=== PATIENT | female | born 1985 | race Caucasian/White ===

== ENCOUNTER 2025-10-10 10:25 | Emergency (ER) | payer BC ==
[~2025-10-10] VITALS: Ht 185.4 cm; Wt 107.2 kg
[2025-10-10 11:51] VITALS: BP 121/88; PULSE 84; RESP 18; TEMP 98.3; O2SAT 98
--- NOTE | 2025-10-10 11:51 | ED.PDOC ---
History of Present Illness HPI Comments 40 y/o F, with PMHx of thyroid disease and seizures presents to the ED for CC of flu-like symptoms. Patient states she has been experiencing flu-like symptoms: including body-aches, nasal congestion, ear-pain, and lethargy onset, [id number]. Patient denies loss of taste or smell, nausea, vomiting, fever, or chills. No other symptoms or modifying factors are present at this time. Chief Complaint: Flu like Time Seen by MD: 11:40 Reviewed Notes: Nurses Notes, Medications, Allergies Allergies: Coded Allergies: Hydromorphone (Verified Allergy, Unknown, 05/04/16) Levetiracetam (Verified Allergy, Unknown, 05/04/16) Promethazine (Verified Allergy, Unknown, 05/04/16) Uncoded Allergies: POLYTHALINE (Allergy, Unknown, 05/04/16) Home Meds Active Scripts Promethazine HCl (Promethazine Hydrochlorid) 6.25 Mg/5 Ml Gisella, 12.5 MG PO TID for 10 Days, #300 ML Prov:ERMIAS HERRERA MD 10/10/25 Mometasone Furoate (Nasal) (Nasonex 24Hr) 50 Mcg/Act Spr, 50 MCG NA DAILY for 10 Days, #1 SPRAY Prov:ERMIAS HERRERA MD 10/10/25 Sulfamethoxazole W/Trimethopri (Bactrim Ds Tablet) 1 Tab Tb, 1 TAB PO BID for 10 Days, #20 TAB Prov:ERMIAS HERRERA MD 10/10/25 Information Source: Patient Mode of Arrival: Ambulatory Severity: Moderate Timing: Weeks Duration: Since onset Prehospital treatment: None Past Medical History PAST MEDICAL HISTORY: Anxiety, Seizures, Thyroid Surgical History: Denies all surgeries PLASMA PROCESSOR History: No Pertinent PLASMA PROCESSOR History Family History Family History: Unobtainable Social History Smoker: Non-Smoker Alcohol: Denies ETOH Use Drugs: Denies Drug Use Lives In: Home Constitutional: reports: weakness; denies: chills, diaphoresis, fatigue, fever, malaise, sweats, others EENTM: reports: ear pain, nose congestion; denies: blurred vision, double vision, ear bleeding, ear discharge, ear drainage, ear ringing, eye pain, eye redness, hearing loss, mouth pain, mouth swelling, nasal discharge, nose bleeding, nose pain, photophobia, tearing, throat pain, throat swelling, voice changes, others Respiratory: denies: cough, hemoptysis, orthopnea, SOB at rest, shortness of breath, SOB with excertion, stridor, wheezing, others Cardiovascular: denies: chest pain, dizzy spells, diaphoresis, Dyspnea on exertion, edema, irregular heart beat, left arm pain, lightheadedness, palpitations, PND, syncope, others Gastrointestinal: denies: abdomen distended, abdominal pain, blood streaked bowels, constipated, diarrhea, dysphagia, difficulty swallowing, hematemesis, melena, nausea, poor appetite, poor fluid intake, rectal bleeding, rectal pain, vomiting, others Genitourinary: denies: abnormal vagina bleeding, burning, dyspareunia, dysuria, flank pain, frequency, hematuria, incontinence, pain, , vagina discharge, urgency, others Neurological: denies: dizziness, fainting, headache, left sided numbness, left sided weakness, numbness, paresthesia, pre-existing deficit, right sided numbness, right sided weakness, seizure, speech problems, tingling, tremors, weakness, others Musculoskeletal: reports: others (body-aches); denies: back pain, gout, joint pain, joint swelling, muscle pain, muscle stiffness, neck pain Integumetry: denies: bruises, change in color, change in hair/nails, dryness, laceration, lesions, lumps, rash, wounds, others Allergic/Immunocompromised: denies: Difficulty Healing, Frequent Infections, Hives, Itching, others Hematologic/Lymphatic: denies: anemia, blood clots, easy bleeding, easy bruising, swollen glands, others Endocrine: denies: excessive hunger, excessive sweating, excessive thirst, excessive urination, flushing, intolerance to cold, intolerance to heat, unexplained weight gain, unexplained weight loss, others Psychiatric: denies: anxiety, bipolar disorder, depression, hopeless, panic disorder, schizophrenia, sleepless, suicidal, others All Other Systems: Reviewed and Negative Physical Exam General Appearance: Mild Distress, Moderate Distress, Obese HEENT: Normal ENT Inspection, PERRL/EOMI, Pharyngeal Erythema, Other (Description) Neck: Full Range of Motion, Non-Tender, Normal, Normal Inspection Respiratory: Chest Non-Tender, Lungs Clear, No Accessory Muscle Use, No Respiratory Distress, Normal Breath Sounds Cardiovascular: No Edema, No JVD, No Murmur, No Gallop, Normal Peripheral Pulse s, Regular Rate/Rhythm Breast Exam: Deferred Gastrointestinal: No Organomegaly, Non Tender, No Pulsatile Mass, Normal Bowel Sounds, Soft Genitalia: Deferred Pelvic: Deferred Rectal: Deferred Extremities: No calf tenderness, Normal capillary refill, Normal inspection, Normal range of motion, Non-tender, No pedal edema Neurologic: Alert, head resident II-XII nml as Tested, No Motor Deficits, Normal Affect, Normal Mood, No Sensory Deficits Cerebellar Function: Normal Reflexes: Normal Skin: Dry, Normal Color, Warm Peripheral Pulses: 1+ carotid (R), 1+ carotid (L) Lymphatic: No Adenopathy Was a procedure done? Was a procedure done?: No Differential Dx Considerations may include: COVID-19, influenza, viral syndrome, upper respiratory infection, otitis media sinusitis pneumonia X-Ray, Labs, Meds, VS Vital Signs Date Time Temp Pulse Resp B/P (MAP) Pulse Ox O2 Delivery O2 Flow Rate FiO2 10/10/25 11:51 84 18 98 Room Air 10/10/25 11:51 98.3 84 18 121/88 (99) 98 98.3 10/10/25 10:27 97.6 88 88 141/83 99 97.6 Lab Test 10/10/25 14:58 Range/Units SARS-CoV-2 Antigen (Rapid) Negative NEGATIVE X-Ray, Labs, Meds, VS Comment COURSE IN THE THE FAST TRACK EVEN FULL PATIENT CAME BECAUSE OF THE FLU-LIKE SYNDROME WITH A DIZZINESS FOR THE PAST TWO WEEKS NOT FEELING BETTER CHEST X-RAY IS NEGATIVE COVID with a negative PATIENT WILL BE DISCHARGED HOME TO FOLLOW UP WITH HER PCP Time of 1ST Reevaluation: 12:10 Reevaluation 1ST: Unchanged Time of 2ND Reevaluation: 15:30 Reevaluation 2ND: Improved Consultation: PCP Patient Education/Counseling: Diagnosis, Treatment, Prognosis, Need For Follow Up Family Education/Counseling: Diagnosis, Treatment, Prognosis, Need For Follow Up, No Family Present SEPSIS Sepsis Screen Date sepsis recognized/suspect: Oct 10, 2025 Time Sepsis recognized/suspect: 1029 Recent Procedure: No On Antibiotic Therapy: No Respiratory Rate >20: No Heart Rate >90: No Temp<36 C (96.8 F) or >38.3 C: No SBP <90 or MAP <65 mmHG: No New Acute Mental Status Change: No Is the patient on CPAP, BIPAP,: No Physician Orders Chest Two Views Routine (10/10/25 12:49) Vital Signs Date Time Temp Pulse Resp B/P (MAP) Pulse Ox O2 Delivery O2 Flow Rate FiO2 10/10/25 11:51 84 18 98 Room Air 10/10/25 11:51 98.3 84 18 121/88 (99) 98 98.3 10/10/25 10:27 97.6 88 88 141/83 99 97.6 Departure 1 Departure Time of Disposition: 14:38 Impression: Primary Impression: Acute sinusitis Qualified Codes: J01.00 - Acute maxillary sinusitis, unspecified Additional Impression: Cough with congestion of paranasal sinus Disposition: 01 HOME / SELF CARE / HOMELESS Condition: Fair Additional Instructions: PUSH FLUIDS AND FOLLOW UP WITH YOUR PCP e-Prescriptions Promethazine HCl (Promethazine Hydrochlorid) 6.25 Mg/5 Ml Gisella 12.5 MG PO TID for 10 Days, #300 ML Prov: ERMIAS HERRERA MD 10/10/25 Mometasone Furoate (Nasal) (Nasonex 24Hr) 50 Mcg/Act Spr 50 MCG NA DAILY for 10 Days, #1 SPRAY Prov: ERMIAS HERRERA MD 10/10/25 Sulfamethoxazole W/Trimethopri (Bactrim Ds Tablet) 1 Tab Tb 1 TAB PO BID for 10 Days, #20 TAB Prov: ERMIAS HERRERA MD 10/10/25 Discharged With: Self Critical Care Note Critical Care Time?: No Stability Stability form required: No Heart Score Heart Score: Heart Score Response (Comments) Value History N/A 0 EKG N/A 0 Age <45 0 Risk Factors No known risk factors 0 Troponin N/A 0 Total 0 I personally scribed for ERMIAS HERRERA MD ([email or web address]) on 10/10/25 at 11:51. Electronically submitted by Nellie Cifuentes ([email or web address]). ERMIAS HERRERA MD Oct 10, 2025 11:51
--- NOTE | 2025-10-10 13:47 | DVH ---
CHEST RADIOGRAPH INDICATION: Persistent cough for two weeks TECHNIQUE: Frontal and lateral view of the chest was obtained COMPARISON: None FINDINGS: Lines and Tubes: None Lungs: Clear Pleura: No effusion. No pneumothorax. Cardiomediastinal contours: Unremarkable Bones: Unremarkable IMPRESSION: 1. No evidence of acute disease.
[2025-10-10] MEDS ORDERED: MOME50SP11 (14:42)
[2025-10-10] MEDS ORDERED: PROM5SOL PO (14:42)
[2025-10-10] MEDS ORDERED: BACDST PO (14:42)
[2025-10-10 15:30] LABS: COVID19 ANTIGEN SOFIA FIA NEGATIVE (NEGATIVE)
== END 2025-10-10 16:23 | disposition home or self-care (01) ==
LOC: ER 10:25
DX: J01.90 Acute sinusitis, unspecified (principal); Z20.822 Contact with and (suspected) exposure to COVID-19; Z88.5 Allergy status to narcotic agent
CPT/HCPCS: 36415; 71046; 87426